=== PATIENT | female | born 1985 | race African-American/Black ===

== ENCOUNTER 2019-02-23 17:42 | Emergency (ER) | payer SELFPAY ==
--- NOTE | 2019-02-23 20:14 | EDPHYS ---
Physician Documentation [facility] Name: Lurdes Nelson Age: 33 yrs Sex: Female : 1985 Arrival Date: 02/23/2019 Time: 17:44 Bed 25 Private MD: ED Physician Brandin Yin HPI: 02/23 22:11 This 33 yrs old Black Female presents to ER via Ambulatory with complaints of Chest snw Congestion, Cough, Back Pain, Hip Pain. 22:11 The patient or guardian reports airway noise, cough, hoarse voice. Onset: The snw symptoms/episode began/occurred suddenly, 1 week(s) ago, and became persistent. Associated signs and symptoms: Pertinent positives: fever, rhinorrhea, sore throat, lower back pain with radiation down right leg. Severity of symptoms: At their worst the symptoms were moderate. The patient has not experienced similar symptoms in the past. It is unknown whether or not the patient has recently seen a physician. 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 - Social history:: Smoking status: . - Ebola Screening: : Patient denies travel to an Ebola-affected area in the 21 days before illness onset. ROS: 22:10 Constitutional: Negative for fever, chills, and weight loss, Eyes: Negative for injury, snw pain, redness, and discharge, Neck: Negative for injury, pain, and swelling, Cardiovascular: Negative for chest pain, palpitations, and edema, Abdomen/GI: Negative for abdominal pain, nausea, vomiting, diarrhea, and constipation, Back: Negative for injury. Lower back pain with radiation to right buttock and down calf : Negative for injury, bleeding, discharge, and swelling, MS/Extremity: Negative for injury and deformity, Skin: Negative for injury, rash, and discoloration, Neuro: Negative for headache, weakness, numbness, tingling, and seizure. 22:10 ENT: Positive for nasal discharge, sinus congestion, sore throat. 22:10 Respiratory: Positive for cough, with no reported sputum. Exam: 22:08 Constitutional: This is a well developed, well nourished patient who is awake, alert, snw and in no acute distress. Head/Face: Normocephalic, atraumatic. Eyes: Pupils equal round and reactive to light, extra-ocular motions intact. Lids and lashes normal. Conjunctiva and sclera are non-icteric and not injected. Cornea within normal limits. Periorbital areas with no swelling, redness, or edema. Neck: Trachea midline, no thyromegaly or masses palpated, and no cervical lymphadenopathy. Supple, full range of motion without nuchal rigidity, or vertebral point tenderness. No Meningismus. Chest/axilla: Normal chest wall appearance and motion. Nontender with no deformity. No lesions are appreciated. Cardiovascular: Regular rate and rhythm with a normal S1 and S2. No gallops, murmurs, or rubs. Normal PMI, no JVD. No pulse deficits. Respiratory: Lungs have equal breath sounds bilaterally, clear to auscultation and percussion. No rales, rhonchi or wheezes noted. No increased work of breathing, no retractions or nasal flaring. Abdomen/GI: Soft, non-tender, with normal bowel sounds. No distension or tympany. No guarding or rebound. No evidence of tenderness throughout. Back: No spinal tenderness. No costovertebral tenderness. Full range of motion. Skin: Warm, dry with normal turgor. Normal color with no rashes, no lesions, and no evidence of cellulitis. MS/ Extremity: Pulses equal, no cyanosis. Neurovascular intact. Full, normal range of motion. Neuro: Awake and alert, GCS 15, oriented to person, place, time, and situation. Cranial nerves II-XII grossly intact. Motor strength 5/5 in all extremities. Sensory grossly intact. Cerebellar exam normal. Normal gait. Psych: Awake, alert, with orientation to person, place and time. Behavior, mood, and affect are within normal limits. 22:08 ENT: External ear(s): are unremarkable, Ear canal(s): are normal, TM's: are normal, Nose: is normal, Mouth: Oral mucosa: normal, Tongue: is normal, Posterior pharynx: Uvula: midline, swelling, that is mild, Dental exam: normal, Voice: is hoarse. Vital Signs: 17:50 BP 151 / 87; Pulse 85; Resp 17; Temp 98.0(TE); Pulse Ox 100% on R/A; Weight 113.4 kg tw2 (R); Height 5 ft. 3 in. (160.02 cm); Pain 10/10; 19:45 BP 132 / 74; Pulse 65; Resp 18; Pulse Ox 100% ; wh 20:31 BP 137 / 76; Pulse 69; Resp 18; Pulse Ox 100% on R/A; wh 17:50 Body Mass Index 44.29 (113.40 kg, 160.02 cm) tw2 17:50 hip pain tw2 MDM: 18:56 Patient medically screened. snw 22:09 Data reviewed: vital signs, nurses notes. Data interpreted: Pulse oximetry: on room air snw is 100 %. Interpretation: normal. Counseling: I had a detailed discussion with the patient and/or guardian regarding: the historical points, exam findings, and any diagnostic results supporting the discharge/admit diagnosis, lab results, the need for outpatient follow up, to return to the emergency department if symptoms worsen or persist or if there are any questions or concerns that arise at home. Response to treatment: the patient's symptoms have mildly improved after treatment. Special discussion: I have referred the patient to see his PCP for further evaluation of high blood pressure. Based on the history and exam findings, there is no indication for further emergent testing or inpatient evaluation. I discussed with the patient/guardian the need to see the primary care provider for further evaluation of the symptoms. 02/23 18:07 Order name: Flu; Complete Time: 19:07 02/23 18:07 Order name: Strep; Complete Time: 18:56 02/23 18:57 Order name: Throat Culture EDMS Administered Medications: 20:24 Drug: Decadron 8 mg Route: PO; 20:36 Follow up: Response: No adverse reaction Disposition: 02/23/19 20:13 Discharged to Home. Impression: Acute laryngitis, Low back pain, Radiculopathy, lumbar region. - Condition is Stable. - Discharge Instructions: Back Pain, Adult, Laryngitis, Lumbosacral Radiculopathy, Musculoskeletal Pain, Back Injury Prevention, [id number], Back Exercises, [id number], Cryotherapy, Heat Therapy. - Prescriptions for Tessalon Perles 100 mg Oral Capsule - take 1 capsule by ORAL route every 8 hours As needed; 15 capsule. Prednisone 20 mg Oral Tablet - take 2 tablet by ORAL route once daily for 5 days; 10 tablet. orphenadrine citrate 100 mg Oral Tablet Sustained Release - take 1 tablet by ORAL route 2 times per day As needed; 20 tablet. Pepcid 20 mg Oral Tablet - take 1 tablet by ORAL route once daily; 20 tablet. - Work release form, Medication Reconciliation Form, Thank You Letter, Antibiotic Education, Prescription Opioid Use form. - Follow up: Private Physician; When: 2 - 3 days; Reason: Recheck today's complaints, Continuance of care, Re-evaluation by your physician. Follow up: Emergency Department; When: As needed; Reason: Worsening of condition. Addendum: 02/27/2019 06:34 Co-signature as Attending Physician, Brandin Yin MD I agree with the assessment and k dr plan of care. Signatures: Dispatcher [employer] EDMS Brandin Yin MD MD [facility] Yocasta Coles, TELEPHONE INSTRUMENT SUPERVISOR-C TELEPHONE INSTRUMENT SUPERVISOR-Alejandrow Lucy Kimbrough RN RN tw2 Crissy Posadas Corrections: (The following items were deleted from the chart) 02/23 20:38 20:13 02/23/2019 20:13 Discharged to Home. Impression: Acute laryngitis; Low back pain; wh Radiculopathy, lumbar region. Condition is Stable. Forms are Medication Reconciliation Form, Thank You Letter, Antibiotic Education, Prescription Opioid Use. Follow up: Private Physician; When: 2 - 3 days; Reason: Recheck today's complaints, Continuance of care, Re-evaluation by your physician. Follow up: Emergency Department; When: As needed; Reason: Worsening of condition. snw 22:11 22:10 Constitutional: Negative for fever, chills, and weight loss, Eyes: Negative for snw injury, pain, redness, and discharge, Neck: Negative for injury, pain, and swelling, Cardiovascular: Negative for chest pain, palpitations, and edema, Abdomen/GI: Negative for abdominal pain, nausea, vomiting, diarrhea, and constipation, Back: Negative for injury and pain, : Negative for injury, bleeding, discharge, and swelling, MS/Extremity: Negative for injury and deformity, Skin: Negative for injury, rash, and discoloration, Neuro: Negative for headache, weakness, numbness, tingling, and seizure, snw
--- NOTE | 2019-02-23 20:14 | ER ---
Nurse's Notes [facility] Name: Lurdes Nelson Age: 33 yrs Sex: Female : 1985 Arrival Date: 02/23/2019 Time: 17:44 Bed 25 Private MD: Diagnosis: Acute laryngitis;Low back pain;Radiculopathy, lumbar region Presentation: 02/23 17:48 Presenting complaint: Patient states: Tuesday i started feeling bad, Tuesday i had a tw2 fever and chills, tired, Tuesday i had a really sore throat,i coughed up this junk mucous, i was coughing up a lot of mucous from my chest and my lower back and tailbone hurts and my hips hurt. Transition of care: patient was not received from another setting of care. Onset of symptoms was February 23, 2019. Risk Assessment: Do you want to hurt yourself or someone else? Patient reports no desire to harm self or others. Initial Sepsis Screen: Does the patient meet any 2 criteria? No. Patient's initial sepsis screen is negative. Does the patient have a suspected source of infection? No. Patient's initial sepsis screen is negative. Care prior to arrival: None. 17:48 Method Of Arrival: Ambulatory tw2 17:48 Acuity: RONY 3 tw2 Triage Assessment: 17:50 General: Appears in no apparent distress. obese, well groomed, Behavior is calm, tw2 cooperative, appropriate for age. Pain: Complains of pain in chest congestion and cough and RIGHT hip. Respiratory: Reports cough that is productive. Musculoskeletal: Range of motion: intact in all extremities. 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 - Social history:: Smoking status: . - Ebola Screening: : Patient denies travel to an Ebola-affected area in the 21 days before illness onset. Screenin:56 Abuse screen: Denies threats or abuse. Nutritional screening: No deficits noted. tw2 Tuberculosis screening: No symptoms or risk factors identified. Fall Risk None identified. Assessment: 18:15 General: Appears in no apparent distress. Behavior is calm, cooperative, appropriate wh for age. Pain: Denies pain. Neuro: Level of Consciousness is awake, alert, obeys commands, Oriented to person, place, time, situation, Appropriate for age. Cardiovascular: Heart tones S1 S2. Respiratory: Airway is patent Respiratory effort is even, unlabored, Respiratory pattern is regular, symmetrical, Breath sounds are clear bilaterally. Respiratory: Reports cough that is non-productive. GI: Abdomen is flat, non-distended. : No signs and/or symptoms were reported regarding the genitourinary system. EENT: Throat is pink. Derm: Skin is intact, is healthy with good turgor, Skin is pink, warm \T\ dry. normal. Musculoskeletal: Circulation, motion, and sensation intact. 19:42 Reassessment: Patient appears in no apparent distress at this time. No changes from previously documented assessment. Patient and/or family updated on plan of care and expected duration. Pain level reassessed. Patient is alert, oriented x 3, equal unlabored respirations, skin warm/dry/pink. 20:31 Reassessment: Patient appears in no apparent distress at this time. No changes from previously documented assessment. Patient and/or family updated on plan of care and expected duration. Pain level reassessed. Patient is alert, oriented x 3, equal unlabored respirations, skin warm/dry/pink. Vital Signs: 17:50 BP 151 / 87; Pulse 85; Resp 17; Temp 98.0(TE); Pulse Ox 100% on R/A; Weight 113.4 kg tw2 (R); Height 5 ft. 3 in. (160.02 cm); Pain 10/10; 19:45 BP 132 / 74; Pulse 65; Resp 18; Pulse Ox 100% ; wh 20:31 BP 137 / 76; Pulse 69; Resp 18; Pulse Ox 100% on R/A; wh 17:50 Body Mass Index 44.29 (113.40 kg, 160.02 cm) tw2 17:50 hip pain tw2 ED Course: 17:44 Patient arrived in ED. as 17:50 Triage completed. tw2 17:50 Arm band placed on. tw2 17:56 Bed in low position. Call light in reach. Adult w/ patient. tw2 18:02 Crissy Posadas is Primary Nurse. 18:41 Yocasta Coles FNP-C is PHCP. [facility] 18:41 Brandin Yin MD is Attending Physician. [facility] 20:32 No provider procedures requiring assistance completed. Patient did not have IV access during this emergency room visit. Administered Medications: 20:24 Drug: Decadron 8 mg Route: PO; 20:36 Follow up: Response: No adverse reaction Outcome: 20:13 Discharge ordered by . snw 20:32 Discharged to home ambulatory. 20:32 Condition: stable 20:32 Discharge instructions given to patient, family, Instructed on discharge instructions, follow up and referral plans. medication usage, POC Laryngitis, COugh and Musculoskeletal Pain Demonstrated understanding of instructions, follow-up care, medications, POC Prescriptions given X 4. 20:38 Patient left the ED. Signatures: Yocasta Coles FNP-C TOOL WORKER-Csnw Betsy Pedro Tara RN RN tw2 Crissy Posadas Corrections: (The following items were deleted from the chart) 17:57 17:48 Presenting complaint: Patient states: Tuesday i started feeling bad, Tuesday i had tw2 a fever and chills, tired, Tuesday i had a really sore throat,i coughed up this junk mucous, i was coughing up a lot of mucous from my chest and my lower back and tailbone hurt tw2
[2019-02-23] MEDS ORDERED: dexAMETHasone 4 MG TAB ONE (20:18)
[2019-02-23 20:45] VITALS: TEMP 98; O2SAT 100
[2019-02-23 20:48] VITALS: BP 137/76
== END 2019-02-23 20:38 | disposition home or self-care (01) ==
LOC: ER 17:42
DX: J04.0 Acute laryngitis (principal); M54.5 Low back pain; M54.16 Radiculopathy, lumbar region
CPT/HCPCS: 87070; 87081; 87804; J8540

== ENCOUNTER 2020-04-23 20:57 | Emergency (ER) | payer BC, SELFPAY ==
[2020-04-23] MEDS ORDERED: BUPIVACAINE 0.5% PF 10 ML VIAL ONE (23:13)
[2020-04-23] MEDS ORDERED: LIDOCAINE 1% W/EPI 1:100,000 MDV 50 ML VIAL ONE (23:13)
--- NOTE | 2020-04-23 23:40 | ER ---
Nurse's Notes [facility] Name: Lurdes Nelson Age: 34 yrs Sex: Female : 1985 Arrival Date: 04/23/2020 Time: 21:00 Bed 14 Private MD: Diagnosis: Cutaneous abscess of left lower limb-left lower leg;Cellulitis of left lower limb Presentation: 04/23 21:05 Chief complaint: Reports painful abscess on left lee x 2 days, increasing pain and hb swelling today. Coronavirus screen: At this time, the client does not indicate any symptoms associated with coronavirus-19. Ebola Screen: No symptoms or risks identified at this time. Initial Sepsis Screen: Does the patient meet any 2 criteria? No. Patient's initial sepsis screen is negative. Does the patient have a suspected source of infection? No. Patient's initial sepsis screen is negative. Risk Assessment: Do you want to hurt yourself or someone else? Patient reports no desire to harm self or others. Onset of symptoms was April 22, 2020. 21:05 Method Of Arrival: Ambulatory hb 21:05 Acuity: RONY 4 hb Triage Assessment: 04/24 00:06 Bite description: by an unknown animal. zb 00:06 Bite description: bite sustained to lateral aspect of left calf. zb 00:07 Bite description: animal information: vaccination(s) is unknown. zb Historical: - Allergies: 04/23 21:10 No Known Allergies; hb - PSHx: 21:10 None; hb - Immunization history:: Adult Immunizations up to date. - Social history:: Smoking status: Patient denies any tobacco usage or history of. Screenin:24 Abuse screen: Denies threats or abuse. Denies injuries from another. Nutritional zb screening: No deficits noted. Tuberculosis screening: No symptoms or risk factors identified. Fall Risk None identified. Assessment: 23:00 General: Appears in no apparent distress. comfortable, Behavior is calm, cooperative, zb appropriate for age. Pain: Complains of pain in left lee Pain currently is 8 out of 10 on a pain scale. Quality of pain is described as aching, pressure. Neuro: Level of Consciousness is awake, alert, obeys commands, Oriented to person, place, time, situation. Cardiovascular: No deficits noted. Respiratory: No deficits noted. GI: No deficits noted. : No deficits noted. EENT: No deficits noted. Derm: Skin is intact, is healthy with good turgor, Skin is normal, Abscess located on lateral aspect of left calf is quarter sized, has no drainage, is red, is raised. Musculoskeletal: Circulation, motion, and sensation intact. Capillary refill < 3 seconds, in bilateral fingers. Range of motion:. 04/24 00:05 Reassessment: Patient appears in no apparent distress at this time. Patient and/or zb family updated on plan of care and expected duration. Pain level reassessed. Patient is alert, oriented x 3, equal unlabored respirations, skin warm/dry/pink. d/c instructions given. pt stable. gait stable. ambulatory. Vital Signs: 04/23 21:05 BP 137 / 72; Pulse 72; Resp 16; Temp 97.5; Pulse Ox 100% on R/A; Pain 9/10; hb 04/24 00:05 BP 135 / 80; Pulse 70; Resp 18; Pulse Ox 100% on R/A; zb ED Course: 04/23 21:00 Patient arrived in ED. es 21:10 Triage completed. hb 21:10 Arm band placed on. hb 22:21 Brcie Rowell PA is PHCP. cp 22:21 Brice Garcia MD is Attending Physician. cp 22:56 Hallie Pickens RN is Primary Nurse. zb 23:24 Assist provider with I \T\ D: Set up I\T\D tray. Performed by Brice MORA Culture sent to zb lab. 23:25 Patient has correct armband on for positive identification. Bed in low position. Call zb light in reach. Pulse ox on. NIBP on. 04/24 00:06 Patient did not have IV access during this emergency room visit. zb Administered Medications: 04/23 23:22 Drug: Lidocaine-Epinephrine -1%: (1:100,000) 5 ml {Note: Administered by ECP .} Volume: zb 20 ml; Route: Infiltration; 04/24 00:07 Follow up: Response: No adverse reaction zb 04/23 23:22 Drug: Marcaine (0.5 %) 5 ml {Note: administred by ECP .} Volume: 10 ml; Route: zb Infiltration; 04/24 00:07 Follow up: Response: No adverse reaction zb 00:00 Drug: Bactrim (160 mg-800 mg (DS) 2 tablet Route: PO; rr5 00:07 Follow up: Response: Medication administered at discharge. zb 00:00 Drug: Doxycycline 200 mg Route: PO; rr5 00:07 Follow up: Response: Medication administered at discharge. zb Outcome: 04/23 23:39 Discharge ordered by . ross 04/24 00:06 Discharged to home ambulatory. zb Condition: stable Discharge instructions given to patient, Instructed on discharge instructions, follow up and referral plans. medication usage, Demonstrated understanding of instructions, follow-up care, medications, Prescriptions given X 3. 00:07 Patient left the ED. zb Addendum: 04/27/2020 07:55 Addendum: Culture Results: Positive wound culture. No further action required. Bacteria e b sensitive to prescribed antibiotic. Signatures: Luz Wallace Corey, PA PA cp Baxter, Heather, Pari Oden RN, Raymond RN RN rr5 Hallie Pickens RN RN zb
--- NOTE | 2020-04-23 23:40 | EDPHYS ---
Physician Documentation [facility] Name: Lurdes Nelson Age: 34 yrs Sex: Female : 1985 Arrival Date: 04/23/2020 Time: 21:00 Bed 14 Private MD: ED Physician Brice Garcia HPI: 04/23 22:40 This 34 yrs old Black Female presents to ER via Ambulatory with complaints of Insect cp Bite. 22:40 The patient presents with swelling, tenderness. The complaints affect the left lee. cp Context: resulted from possible insect bite. 22:40 Onset: The symptoms/episode began/occurred 2 day(s) ago. cp 22:40 Associated signs and symptoms: Pertinent positives: warmth, Pertinent negatives fever. cp Historical: - Allergies: 21:10 No Known Allergies; hb - PSHx: 21:10 None; hb - Immunization history:: Adult Immunizations up to date. - Social history:: Smoking status: Patient denies any tobacco usage or history of. ROS: 22:50 Constitutional: Negative for body aches, chills, fever, poor PO intake. cp 22:50 Eyes: Negative for injury, pain, redness, and discharge. cp 22:50 Cardiovascular: Negative for chest pain. 22:50 Respiratory: Negative for cough, shortness of breath. 22:50 Abdomen/GI: Negative for abdominal pain, nausea, vomiting, and diarrhea. 22:50 Skin: Positive for erythema, swelling, of the anterior aspect left lower leg. 22:50 All other systems are negative. Exam: 22:55 Constitutional: The patient appears in no acute distress, alert, awake, non-toxic, well cp developed, well nourished. 22:55 Head/Face: Normocephalic, atraumatic. cp 22:55 Cardiovascular: Rate: normal. 22:55 Respiratory: the patient does not display signs of respiratory distress, Respirations: normal. 22:55 Skin: abscess, that is small, of the anterior aspect left lower leg, with surrounding cellulitis, that is mild. Vital Signs: 21:05 BP 137 / 72; Pulse 72; Resp 16; Temp 97.5; Pulse Ox 100% on R/A; Pain 9/10; hb 04/24 00:05 BP 135 / 80; Pulse 70; Resp 18; Pulse Ox 100% on R/A; zb Procedures: 04/23 23:36 I \T\ D: Incision and drainage was performed for an abscess of the anterior aspect left cp lower leg Prepped with Betadine, Anesthetized with 8 ccs of 50/50 mixture 1% lidocaine with epi and 0.5% marcaine. Incised with #11 blade. Drained small amount purulent fluid. bloody fluid. Packed with iodoform gauze, Dressing: sterile 4x4 gauze, the patient tolerated the procedure well. MDM: 22:26 Patient medically screened. lorraine 23:00 Differential diagnosis: abscess, cellulitis. cp 23:38 Data reviewed: vital signs, nurses notes, and as a result, I will discharge patient. cp 04/23 23:35 Order name: Wound Culture cp 04/23 23:36 Order name: Wound Culture EDWV 04/23 22:33 Order name: I\T\D Setup; Complete Time: 23:22 cp Administered Medications: 23:22 Drug: Lidocaine-Epinephrine -1%: (1:100,000) 5 ml {Note: Administered by ECP .} Volume: zb 20 ml; Route: Infiltration; 04/24 00:07 Follow up: Response: No adverse reaction 04/23 23:22 Drug: Marcaine (0.5 %) 5 ml {Note: administred by ECP .} Volume: 10 ml; Route: zb Infiltration; 04/24 00:07 Follow up: Response: No adverse reaction zb 00:00 Drug: Bactrim (160 mg-800 mg (DS) 2 tablet Route: PO; rr5 00:07 Follow up: Response: Medication administered at discharge. zb 00:00 Drug: Doxycycline 200 mg Route: PO; rr5 00:07 Follow up: Response: Medication administered at discharge. zb Disposition: 07:45 Co-signature as Attending Physician, Brice Garcia MD I agree with the assessment and [facility] plan of care. Disposition: 04/23/20 23:39 Discharged to Home. Impression: Cutaneous abscess of left lower limb - left lower leg, Cellulitis of left lower limb. - Condition is Stable. - Discharge Instructions: Skin Abscess, Cellulitis, Adult, Incision and Drainage. - Prescriptions for Doxycycline Hyclate 100 mg Oral Tablet - take 1 tablet by ORAL route every 12 hours; 20 tablet. Tramadol 50 mg Oral Tablet - take 1 tablet by ORAL route every 8 hours as needed; 12 tablet. Bactrim DS 800- 160 mg Oral Tablet - take 1 tablet by ORAL route every 12 hours for 10 days; 20 tablet. - Medication Reconciliation Form, Thank You Letter, Antibiotic Education, Prescription Opioid Use form. - Follow up: Private Physician; When: 1 - 2 days; Reason: Wound Recheck. - Problem is new. - Symptoms have improved. Signatures: Dispatcher [employer] EDWV Brice Garcia MD MD cha Page, Corey, PA PA cp Silvia Edwards, RN RN Vineet Dumas, RN RN rr5 Hallie Pickens RN RN zb Corrections: (The following items were deleted from the chart) 00:07 04/23 23:39 04/23/2020 23:39 Discharged to Home. Impression: Cutaneous abscess of left zb lower limb - left lower leg; Cellulitis of left lower limb. Condition is Stable. Forms are Medication Reconciliation Form, Thank You Letter, Antibiotic Education, Prescription Opioid Use. Follow up: Private Physician; When: 1 - 2 days; Reason: Wound Recheck. Problem is new. Symptoms have improved. cp
[2020-04-24] MEDS ORDERED: SMZ./TMP. 800/160 MG TABLET ONE (00:07)
[2020-04-24] MEDS ORDERED: DOXYCYCLINE 100 MG CAP PO ONE (00:08)
[2020-04-24 00:19] VITALS: TEMP 97.5; O2SAT 100
[2020-04-24 00:20] VITALS: BP 135/80
== END 2020-04-24 00:07 | disposition home or self-care (01) ==
LOC: ER 20:57
PROC: 0J9P0ZZ Drainage of Left Lower Leg Subcutaneous Tissue and Fascia, Open Approach (ICD-10-PCS; principal; 2020-04-24)
DX: L03.116 Cellulitis of left lower limb (principal); L02.416 Cutaneous abscess of left lower limb
CPT/HCPCS: 87070; 87077; 87186; 87205; 99284